=== PATIENT | male | born 1980 | race African-American/Black ===

== ENCOUNTER 2019-12-03 12:48 | Emergency (ER) | payer OTHER, SELFPAY ==
[2019-12-03 13:10] VITALS: BP 153/92; PULSE 77; RESP 15; TEMP 37.3; O2SAT 99; BMI 29.1
[2019-12-03] MEDS: PROPARACAINE 0.5% OPHTH SOL 1 DROPS EYE-RIGHT (13:42)
[2019-12-03] MEDS: FLUORESCEIN 1 MG STRIP EYE-RIGHT (13:42)
--- NOTE | 2019-12-03 14:33 | ED_ITS ---
HPI - Eye Problem <ESTELA Canales - Last Filed: 12/03/19 16:28> General Chief complaint: Eye Problems Stated complaint: Rt eye extremely red t-1 day Time Seen by Provider: 12/03/19 13:30 Source: patient Mode of arrival: Ambulatory History of Present Illness HPI Narrative: 39yo male presents to the emergency department for right eye irritation starting last evening. He states he has a history of seasonal al lergies and intermittently was contacts. Patient woke up this morning and noticed his eye had clear watery discharge with some crusting and was red. Patient states it feels leg there is a film covering his eye, he also describes a grinding sensation. He denies any known foreign bodies in his eye or sudden onset of symptoms. Patient denies any double vision, vision loss, headaches, photophobia, nausea, vomiting, diarrhea, or any other concerns. Patient denies any major medical issues or any medical problems. Related Data Previous Rx's Medication Instructions Recorded levofloxacin 1 drop EYE-RIGHT Q2H 6 Days #5 ml 12/03/19 Allergies Allergy/AdvReac Type Severity Reaction Status Date / Time No Known Drug Allergies Allergy Verified 12/03/19 13:10 Review of Systems <ESTELA Canales - Last Filed: 12/03/19 16:28> Review of Systems Narrative: REVIEW OF SYSTEMS: GENERAL: Denies fever or chills. HENT: No head trauma, hearing loss, or sore throat. EYES: Complains of right eye irritation, see HPI. NECK/LYMPHATIC: No lymphadenopathy. CARDIOVASCULAR: No chest pain. RESPIRATORY: No cough or shortness of breath. INTEGUMENTARY: No rash, lesions, or pruritus. NEURO: No headaches or confusion. Patient History <ESTELA Canales - Last Filed: 12/03/19 16:28> Medical History No significant medical problems (Acute) Social History Smoking Status: Current every day smoker Smoking Status: Current every day smoker Substance Use Type: does not use Exam <ESTELA Canales - Last Filed: 12/03/19 16:28> Initial Vital Signs Initial Vital Signs: Vital Signs Temperature 99.1 F 12/03/19 13:10 Pulse Rate 77 12/03/19 13:10 Respiratory Rate 15 12/03/19 13:10 Blood Pressure 153/92 H 12/03/19 13:10 Pulse Oximetry 99 12/03/19 13:10 PHYSICAL EXAMINATION: GENERAL: Well groomed, alert, and cooperative. Answers questions promptly and appropriately. Vital signs noted. HENT: Normocephalic, atraumatic. Hearing intact. Oral mucosa is pink and moist. Face features symmetrical. EYES: PERRLA, EOMIs, conjunctiva erythematous, slightly injected more laterally than medial. Fluorescein examination reveals no abrasions or foreign bodies. Clear watery discharge noted to eye. Yellow crusting noted to medial aspect of eyelids. Corrected visual acuity bilaterally 20/25, right 20/25, and left 20/30. RESPIRATORY: Normal respiratory rate, trachea midline, airway patent. No stridor, nasal flaring or accessory muscle use. MUSCULOSKELETAL: Normal gait and coordination. Equal tone and mass bilaterally. SKIN: Warm, dry, soft, appropriate color for ethnicity. NEURO: Alert and Oriented X 3. Good coordination. PSYCH: Appropriate affect and mood. <Paulo Epsino MD - Last Filed: 12/06/19 07:34> Initial Vital Signs Initial Vital Signs: Vital Signs Temperature 99.1 F 12/03/19 13:10 Pulse Rate 77 12/03/19 13:10 Respiratory Rate 15 12/03/19 13:10 Blood Pressure 153/92 H 12/03/19 13:10 Pulse Oximetry 99 12/03/19 13:10 Course <ESTELA Canales - Last Filed: 12/03/19 16:28> Orders Ordered: Discontinued Medications Fluorescein Sodium (Ful-Irasema) 1 mg EYE-RIGHT NOW ONE Stop: 12/03/19 13:35 Last Admin: 12/03/19 13:42 Dose: 1 mg Documented by: MARGARITA Proparacaine HCl (Parcaine 0.5% Ophth Deana) 1 drops EYE-RIGHT NOW ONE Stop: 12/03/19 13:35 Last Admin: 12/03/19 13:42 Dose: 1 drop Documented by: MARGARITA Vital Signs Vital signs: Vital Signs - 8 hr 12/03/19 13:10 Temperature 99.1 F Pulse Rate 77 Respiratory Rate 15 Blood Pressure 153/92 H Pulse Oximetry 99 <Paulo Espino MD - Last Filed: 12/06/19 07:34> Orders Ordered: Discontinued Medications Fluorescein Sodium (Ful-Irasema) 1 mg EYE-RIGHT NOW ONE Stop: 12/03/19 13:35 Last Admin: 12/03/19 13:42 Dose: 1 mg Documented by: MARGARITA Proparacaine HCl (Parcaine 0.5% Ophth Deana) 1 drops EYE-RIGHT NOW ONE Stop: 12/03/19 13:35 Last Admin: 12/03/19 13:42 Dose: 1 drop Documented by: MARGARITA Vital Signs Vital signs: Vital Signs - 8 hr 12/03/19 13:10 Temperature 99.1 F Pulse Rate 77 Respiratory Rate 15 Blood Pressure 153/92 H Pulse Oximetry 99 MDM - Eye Problem <ESTELA Canales - Last Filed: 12/03/19 16:28> Medical Records Attestation: I reviewed the patient's medical records. Lab Data Attestation: I reviewed the patient's lab results. [facility] Narrative Medical decision making narrative: 39-year-old male presenting to the emergency department for right eye irritation. I suspect patient's symptoms are most likely caused by a bacterial conjunctivitis given unilateral presentation and conjunctiva injection. Patient states that he does wear contacts, antibiotics were given to cover Pseudomonas. Less likely foreign body or corneal abrasion as fluorescein examination was negative for any concerning lacerations or foreign bodies. Less likely iritis as pupils are equal and reactive. Patient was encouraged to refrain from wearing contacts and follow up with his eye doctor and the next 1-2 weeks if symptoms continue. Return precautions were given for new or worsening symptoms. Patient agreed to plan of care verbalized understanding. Discharge Plan Departure Patient Disposition: Home Clinical Impression: Conjunctivitis Qualifiers: Conjunctivitis type: acute Acute conjunctivitis type: bacterial Laterality: right Qualified Code(s): H10.31 - Unspecified acute conjunctivitis, right eye Discharge Date/Time: 12/03/19 13:58 Instructions: DI for Conjunctivitis Activity Restrictions/Additional Instructions: Thank you for entrusting me with your care today. As discussed, no foreign bodies or abrasions were found in your eye today. I suspect your symptoms are most likely caused by conjunctivitis which is an irritation of the membranes in your eye. This may be due to a bacterial infection. This can commonly occur if you have a history of allergies and often touch or rub your eye. I prescribed you antibiotic eyedrops, please place 1-2 drops in your eye every 2 hours while awake for 2 days, then placed 1-2 drops in your eye every 4 hours while awake for 5 days. If you develop symptoms in your other eye, you may use the eye drops in that eye as well. Please try to refrain from touching your eyes much as possible. You may return to work after 24 hours on the antibiotic. Do not wear your contacts until the the antibiotic drops are finished. Follow-up with an eye doctor or the emergency department if you develop any new or worsening symptoms such as severe eye pain, vision loss, double vision, headaches, or any other concerns. Prescriptions: New levofloxacin 0.5 % drops 1 drop EYE-RIGHT Q2H 6 Days Qty: 5 RF: 0 Stand Alone Forms: Work Release Note
== END 2019-12-03 13:58 | disposition home or self-care (01) ==
PROVIDERS: Emergency Provider Nurse Practitioner
DX: H10.31 Unspecified acute conjunctivitis, right eye (principal)
CPT/HCPCS: 99282

== ENCOUNTER 2021-08-10 07:31 | Emergency (ER) | payer OTHER, SELFPAY ==
[2021-08-10 07:55] VITALS: BP 141/103; PULSE 94; RESP 17; TEMP 36.3; O2SAT 97; BMI 29.1
--- NOTE | 2021-08-10 07:57 | ED.GENADULT ---
HPI - General Adult General Stated complaint: LT. KNEE PAIN TOES TINGLING Time Seen by Provider: 08/10/21 07:56 History of Present Illness HPI narrative: 41-year-old gentleman with no significant medical history presents with acute left knee pain. He had gone for high 3 days ago and noted the end of the hike that his knee was a little bit stiff particularly in the popliteal fossa. He did not really think anything about it and continued with his usual activity. This morning he was standing and simply gently twisted and felt a pop in his knee with immediate paresthesia type sensation spreading down the posterior calf with some decreased sensation and tingling into his toes. That sensation lasted approximately 20 minutes and has entirely resolved. He is stable able to walk him presents for further evaluation. He does not have prior specifically diagnosed knee injuries. He denies any overt trauma or falls to the knee. No recent fevers, chills, abdominal pain, headaches, vomiting or diarrhea. Related Data Allergies Allergy/AdvReac Type Severity Reaction Status Date / Time No Known Drug Allergies Allergy Verified 12/03/19 13:10 Review of Systems Review of Systems Narrative: Remainder of complete review of systems is otherwise unremarkable except for that included in the HPI. Patient History Medical History (Updated 08/10/21 @ 08:18 by Mica Coelho MD) No significant medical problems Social History Smoking Status: Current every day smoker Smoking Status: Current every day smoker Substance Use Type: does not use Exam Narrative Exam Narrative: General: Alert appropriate in no acute distress Respiratory: Able to speak in full sentences, no obvious respiratory distress Skin: No obvious rashes, warm and dry Neurologic: Grossly intact no obvious asymmetries or abnormalities Psych: appropriate insight and affect, cooperative Extremity: Left knee with minor effusion, all ligaments are stable without significant tenderness. Maximum tenderness is in the popliteal fossa with some mild tenderness and fullness in the proximal gastroc without significant lower extremity edema. Course Orders Ordered: ED Orders 08/10/21 07:54 XR knee LT 3V Stat Medical Decision Making MDM Narrative Medical decision making narrative: Given his description of increasing pain in the popliteal after his hike 3 days ago and then that popping sensation with a spreading paresthesia type sensation down the posterior calf that is now resolved I suspect that he was developing a Weston's cyst that ruptured this morning. His pain is continuing to improve with time and he has a knee brace. There is no knee or gait instability at this time. No evidence of infection. No evidence of bony injury or acute ligamentous injury. Reviewed anticipated resolution with a ruptured Weston cyst. Recommended that he follow-up with primary care physician if symptoms are not improving. Incidentally noted hypertension. He states that today is the day he is becoming a nonsmoker. He was at the dentist yesterday and also noted to have an elevated blood pressure. Strongly encouraged him to keep track of daily brought pressures and schedule appointment with his primary care physician to review numbers and see if medical intervention is necessary. We discussed the importance of stopping smoking in controlling blood pressures and for venting the need for additional medical intervention. Discharge Plan Departure Patient Disposition: Home Clinical Impression: Weston's cyst, ruptured Instructions: DI for Weston Cyst Activity Restrictions/Additional Instructions: Thank you for coming in today With the description history that you have given today I suspect that you had a Weston cyst that likely was irritated after your hike 3 days ago and ruptured this morning causing the acute pain. The majority of the time this will heal spontaneously and he should do well. I would recommend rest and ice the next at least 24 hours then activity as tolerated. Using 400 mg of ibuprofen (2 zend-sup-kenwlwg pills) and 1 Tylenol every 6 hours can be very helpful in controlling pain. If you find that symptoms are getting worse you may well need to follow-up with orthopedic surgery. Your blood pressure was incidentally found to be elevated today. I am glad that you decided to stop smoking, this will make a significant difference and may actually be the difference between needing blood pressure medications or not. I would recommend that you keep track of daily blood pressures and schedule an appointment with your primary care physician to review these numbers and decide what additional treatments may be appropriate for you. If you have any worsening symptoms, please return to the emergency department
== END 2021-08-10 08:37 | disposition home or self-care (01) ==
PROVIDERS: Emergency Provider Emergency Medicine
DX: M66.0 Rupture of popliteal cyst (principal)
CPT/HCPCS: 99281

== ENCOUNTER 2021-09-08 07:52 | Emergency (ER) | payer OTHER, SELFPAY ==
[2021-09-08] VITALS (8 sets, daily range): BP systolic 147–178; BP diastolic 95–111; PULSE 71–88; RESP 11–20; TEMP 36.8; O2SAT 99–100; BMI 29.1
--- NOTE | 2021-09-08 08:04 | DI.RAD.S_ITS ---
PROCEDURE: XR CHEST 1V INDICATIONS: chest pain TECHNIQUE: One view of the chest was acquired. COMPARISON: [facility], , CHEST 1 VIEW, 07/24/2015, 9:00. FINDINGS: Surgical changes and devices: None. Lungs and pleura: Lungs are clear. No pleural effusions or pneumothorax. Mediastinum: Mediastinal contours appear normal. Heart size is normal. Bones and chest wall: No suspicious bony lesions. Overlying soft tissues appear unremarkable. IMPRESSION: No acute cardiopulmonary disease process. Dictated by: Paradise Hamilton MD, PhD on 09/08/2021 at 8:50 Approved by: Paradise Hamilton MD, PhD on 09/08/2021 at 8:51
--- NOTE | 2021-09-08 08:05 | ED.ARRPALP ---
HPI - Arrhythmia/Palpitations General Chief Complaint: Arrhythmia/Palpitations Stated Complaint: Heart palps Time Seen by Provider: 09/08/21 08:04 Source: patient Mode of arrival: Ambulatory Limitations: no limitations History of Present Illness HPI narrative: This is a 41-year-old male comes with a sensation of his heart for pounding in his chest he felt shaky and his breathing and had tingling in his head he states it lasted for about an hour and has improved. He states that 1 point he felt almost like a jolt through his body. He denies any chest pain or pressure. He felt short of breath initially but no longer does. He had no diaphoresis, no nausea or vomiting. She no recent diarrhea, constipation or urinary symptoms. Fevers, no chills, no cold cough or congestive type symptoms. He has had no swelling in his extremities. 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 He had been told recently that his blood pressure was high the dentist. He follow-up with his primary care he is averaging 146/95 they are monitoring at this time to see if he needs to start medication. He denies any other past medical history. Does not take any daily medications. No prior surgeries. No known drug allergies. He has been weaning down tobacco and has not stopped. He denies alcohol, no illicit. His primary care provider is Ferny. He denies any family history of cardiac, pulmonary or embolic disease. Related Data Allergies Allergy/AdvReac Type Severity Reaction Status Date / Time No Known Drug Allergies Allergy Verified 09/08/21 08:00 Review of Systems Review of Systems ROS Unobtainable: All systems reviewed & are unremarkable except as noted in HPI and below Patient History Medical History (Updated 09/08/21 @ 08:22 by Nereyda Simental DO) No significant medical problems Social History Smoking Status: Current every day smoker Smoking Status: Current every day smoker alcohol intake frequency: 0-2 drinks per day Substance Use Type: does not use Exam Narrative Exam Narrative: GENERAL: Alert and oriented x three, male in mild distress. HEENT: Head normocephalic, atraumatic, EOMI, pupils reactive, face symmetric, moist mucous membranes NECK: Supple, full range of motion CARDIOVASCULAR: Regular rate and rhythm without murmurs, rubs or gallops. No JVD. No swelling bilateral lower extremities. RESPIRATORY: Breath sounds equal bilaterally, no wheezes rales or rhonchi. No tachypnea accessory muscle use. Patient speaks in full sentences. ABDOMEN: Soft, nontender. Normoactive bowel sounds all 4 quadrants. No guarding or rebound, rigidity, no mass, no bruit pulsatile mass. : No CVA tenderness EXTREMITIES: Normal range of motion, no clubbing or edema. Neurovascularly intact NEUROLOGICAL: Cranial nerves II through XII grossly intact. Moving all extremities SKIN: Warm, dry, no petechiae, no rashes or lesions. Initial Vital Signs Initial Vital Signs: Vital Signs Pulse Rate 83 09/08/21 07:57 Blood Pressure 178/111 H 09/08/21 07:57 Pulse Oximetry 99 09/08/21 07:57 Scores HEART Score Heart Score history: Slightly Suspicious Heart Score EKG: Normal Heart Score Age: < 45 years old Heart Score risk factors: No known risk factors Heart Score troponin: < or = to normal limit Heart Score Total: 0 PERC Score Age greater than or equal to 50 years: No Heart rate greater than or equal to 100 bpm: No Room Air O2 Sat less than 95%: No Unilateral leg swelling: No Recent trauma or surgery: No Hemoptysis: No Prior PE or DVT: No Hormone Use: No Total PERC Score: 0 Course Orders Ordered: ED Orders 09/08/21 08:04 XR chest 1V Stat Complete Blood Count AUTO DIFF Stat Comprehensive Metabolic Panel Stat Lipase Stat Magnesium Stat Troponin & CK Cardiac Panel Stat EKG-12 Lead Stat 09/08/21 08:07 BNP [NT-proBNP (BNP-Adult 18+)] Stat COVID19 -Nasal swab/Pre-Proc Stat Reevaluation(s) Reevaluation #1: Patient I reviewed his findings today. Plan for follow-up outpatient. All questions answered. Blood pressure did improve to 148 systolic while here in the department. Vital Signs Vital signs: Vital Signs - 8 hr 09/08/21 08:01 Temperature 98.2 F Pulse Rate 88 Respiratory Rate 20 Blood Pressure 178/111 H Pulse Oximetry 100 MDM - Arrhythmia/Palpitations Lab Data Result diagrams: 09/08/21 07:10 09/08/21 07:10 Labs: Lab Results 02/28/22 02/28/22 02/28/22 Range/Units 07:10 07:10 07:10 WBC 4.5 (4.5-11.0) X10^3/uL RBC 5.20 (4.5-5.9) X10^6/uL Hgb 15.4 (13.5-17.5) g/dL Hct 45.3 (41-53) % MCV 87.1 (80-100) fL MCH 29.5 (26-34) PG MCHC 33.9 (30-36) % RDW 12.9 (11.6-14.8) % Plt Count 128 L (150-400) X10^3/uL Neut % (Auto) 65.3 (50-75) % Lymph % (Auto) 21.1 L (25-40) % Larimer % (Auto) 9.4 (3-14) % Eos % (Auto) 3.4 (2-4) % Baso % (Auto) 0.8 (0-2) % Neut # (Auto) 3000 (4418-6276) /uL Lymph # (Auto) 1000 L (8625-4325) /uL [place] # (Auto) 400 (0-900) /uL Eos # (Auto) 200 (0-450) /uL Baso # (Auto) 0 (0-100) /uL Sodium 140 (137-145) mmol/L Potassium 4.0 (3.4-5.1) mmol/L Chloride 109 H (98-107) mmol/L Carbon Dioxide 27 (22-32) mmol/L BUN 12 (9-20) mg/dL Creatinine 1.09 (0.66-1.25) mg/dL Estimated GFR > 60.0 (>60) mL/min BUN/Creatinine Ratio 11.0 (6-22) Glucose 103 H (70-100) mg/dL Calcium 9.0 (8.4-10.2) mg/dL Magnesium 1.7 (1.6-2.3) mg/dL Total Bilirubin 0.7 (0.2-1.3) mg/dL AST 29 (17-59) IU/L ALT 23 (<50) IU/L Alkaline Phosphatase 61 (38-126) U/L Total Creatine Kinase 161 (55-170) U/L CK-MB (CK-2) 0.52 (<2.37) ng/mL CK-MB (CK-2) Rel Index 0.3 L (1.5-5.0) % Troponin I < 0.012 (0.01-0.034) ng/mL NT-Pro-B Natriuret Pep 48 (<125) pg/mL Total Protein 7.9 (6.3-8.2) g/dL Albumin 4.4 (3.5-5.0) g/dL Globulin 3.5 (1.7-4.1) g/dL Albumin/Globulin Ratio 1.3 (1.0-2.8) Lipase 47 (23-300) U/L SARS-CoV-2 (PCR) (Negative) 09/08/21 Range/Units 08:58 WBC (4.5-11.0) X10^3/uL RBC (4.5-5.9) X10^6/uL Hgb (13.5-17.5) g/dL Hct (41-53) % MCV (80-100) fL MCH (26-34) PG MCHC (30-36) % RDW (11.6-14.8) % Plt Count (150-400) X10^3/uL Neut % (Auto) (50-75) % Lymph % (Auto) (25-40) % Larimer % (Auto) (3-14) % Eos % (Auto) (2-4) % Baso % (Auto) (0-2) % Neut # (Auto) (7050-9463) /uL Lymph # (Auto) (9404-1019) /uL Larimer # (Auto) (0-900) /uL Eos # (Auto) (0-450) /uL Baso # (Auto) (0-100) /uL Sodium (137-145) mmol/L Potassium (3.4-5.1) mmol/L Chloride (98-107) mmol/L Carbon Dioxide (22-32) mmol/L BUN (9-20) mg/dL Creatinine (0.66-1.25) mg/dL Estimated GFR (>60) mL/min BUN/Creatinine Ratio (6-22) Glucose (70-100) mg/dL Calcium (8.4-10.2) mg/dL Magnesium (1.6-2.3) mg/dL Total Bilirubin (0.2-1.3) mg/dL AST (17-59) IU/L ALT (<50) IU/L Alkaline Phosphatase (38-126) U/L Total Creatine Kinase (55-170) U/L CK-MB (CK-2) (<2.37) ng/mL CK-MB (CK-2) Rel Index (1.5-5.0) % Troponin I (0.01-0.034) ng/mL NT-Pro-B Natriuret Pep (<125) pg/mL Total Protein (6.3-8.2) g/dL Albumin (3.5-5.0) g/dL Globulin (1.7-4.1) g/dL Albumin/Globulin Ratio (1.0-2.8) Lipase (23-300) U/L SARS-CoV-2 (PCR) Negative (Negative) Imaging Data Chest x-ray: Radiologist's Impresson: [address] [address] XRay Report Signed Patient: Tyrell May MR#: [id number] : 1980 Acct:[id number] Age/Sex: 41 / M Date of Service: 09/08/21 Loc: ED Accession Number: [id number] ?? Procedure: XR chest 1V Ordering Provider: Nereyda Simental D.O. PROCEDURE:? XR CHEST 1V ? INDICATIONS:? chest pain ? TECHNIQUE:? One view of the chest was acquired.? ? COMPARISON:? [facility], , CHEST 1 VIEW, 07/24/2015, 9:00. ? FINDINGS:? ? Surgical changes and devices:? None.? ? Lungs and pleura:? Lungs are clear.? No pleural effusions or pneumothorax.? ? Mediastinum:? Mediastinal contours appear normal.? Heart size is normal.? ? Bones and chest wall:? No suspicious bony lesions.? Overlying soft tissues appear unremarkable.? ? IMPRESSION:? No acute cardiopulmonary disease process. ? ? Dictated by: Paardise Hamilton MD, PhD on 09/08/2021 at 8:50 ? ? Approved by: Paradise Hamilton MD, PhD on 09/08/2021 at 8:51? ECG Data Attestation: I personally reviewed and interpreted this ECG as follows: Prior ECG tracings: not available for review Interpretation: Sinus rhythm rate 88 HI 128 QRS of 98 QTC 469, possible LVH seen on prior and today's EKG. No acute ST elevation or depression noted. Patient has prior from 07/24/2015 which appears similar. MDM Narrative Medical decision making narrative: This is a 41-year-old male who comes with complaint of sensation of heart palpitations and shortness of breath and tingling sensation. He has reassuring EKG with comparison from 2016 with no acute changes. Possible history of hypertension which is being monitored but has not been formally diagnosed or started on medication. Heart score is 0. PERC is 0. Plan for follow-up with outpatient. Holter monitor if he has continued palpitations sensation and return precautions if anything worsening. Discharge Plan Departure Patient Disposition: Home Clinical Impression: Palpitations Instructions: DI for Arrhythmias Activity Restrictions/Additional Instructions: Follow up with your physician for recheck. Your platelets are very slightly low today, your physician can recheck these in the future to make sure that they continue to be stable. If you have recurrent symptoms I would recommend talking with your physician about having a Holter monitor or ZIO patch. That you can wear at home to monitor for any a arrhythmias. They can order this as an outpatient. Please return for fevers, new chest pain, shortness of breath, passing out, nausea and vomiting, new swelling in your extremities, black or bloody stools or other new or concerning symptoms. Referrals: Glendy Isaacs PA-C [Non-Staff] -
[2021-09-08 08:31] LABS: Add Manual Diff / Slide Review NO; Basophils Absolute Auto 0 /uL (0-100); Basophils Percent Auto 0.8 % (0-2); Eosinophils Absolute Auto 200 /uL (0-450); Eosinophils Percent Auto 3.4 % (2-4); Hematocrit 45.3 % (41-53); Hemoglobin 15.4 g/dL (13.5-17.5); Lymphocytes Absolute Auto 1000 /uL (1100-4500); Lymphocytes Percent Auto 21.1 % (25-40); Mean Corpuscular HGB Conc 33.9 % (30-36); Mean Corpuscular Hemoglobin 29.5 PG (26-34); Mean Corpuscular Volume 87.1 fL (80-100); Monocytes Absolute Auto 400 /uL (0-900); Monocytes Percent Auto 9.4 % (3-14); Neutrophils Absolute Auto 3000 /uL (1500-7000); Neutrophils Percent Auto 65.3 % (50-75); Platelet Count 128 X10^3/uL (150-400); Red Cell Distribution Width 12.9 % (11.6-14.8); White Blood Cell Count 4.5 X10^3/uL (4.5-11.0)
[2021-09-08 08:41] LABS: Alanine Aminotransferase 23 IU/L (<50); Albumin 4.4 g/dL (3.5-5.0); Albumin Globulin Ratio 1.3 (1.0-2.8); Alkaline Phosphatase 61 U/L (38-126); Aspartate Aminotransferase 29 IU/L (17-59); Bilirubin Total 0.7 mg/dL (0.2-1.3); Blood Urea Nitrogen 12 mg/dL (9-20); Carbon Dioxide 27 mmol/L (22-32); Chloride 109 mmol/L (98-107); Creatine Kinase 161 U/L (55-170); Estimated Glomerular Filt Rate > 60.0 mL/min (>60); Globulin 3.5 g/dL (1.7-4.1); Glucose 103 mg/dL (70-100); Lipase 47 U/L (23-300); Magnesium 1.7 mg/dL (1.6-2.3); Sodium 140 mmol/L (137-145); Total Protein 7.9 g/dL (6.3-8.2)
[2021-09-08 08:48] LABS: NT-proBNP (BNP-Adult 18+) 48 pg/mL (<125)
[2021-09-08 08:51] LABS: Troponin I < 0.012 ng/mL (0.01-0.034)
[2021-09-08 09:07] LABS: CKMB % Relative Index 0.3 % (1.5-5.0); Creatine Kinase MB 0.52 ng/mL (<2.37); HEMOLYSIS < 15 (0-50)
[2021-09-08 09:19] LABS: COVID19 -Nasal RAPID Negative (Negative)
== END 2021-09-08 09:30 | disposition home or self-care (01) ==
PROVIDERS: Emergency Provider Emergency Medicine
DX: R00.2 Palpitations (principal); Z20.822 Contact with and (suspected) exposure to COVID-19
CPT/HCPCS: 36415; 71045; 80053; 82550; 82553; 83690; 83735; 83880; 84484; 85025; 87635; 93005; 99284; C9803